=== PATIENT | female | born 1945 | race Caucasian/White ===

== ENCOUNTER → 2017-02-14 | Outpatient (CLI) | payer MEDICARE ==
[~2017-02-14] MED LIST: ADVI200C9 PO; LORTA5 PO
--- NOTE | 2017-02-18 10:42 | RSPPFT ---
DATE OF PROCEDURE: 02/14/17 COMMENTS: Spirometry shows FVC of 1.2 at 40% of predicted, FEV1 of 0.4 at 21%, FEV1/FVC ratio is decreased. Flow is decreased at FEF 25, FEF 50, FEF 75 and FEF 25-75. There is a good response after bronchodilator treatment. Flow volume loop indicates an obstructive pattern. Flow volume loop indicates an obstructive pattern. Severe loss in diffusion capacity. IMPRESSION: 1. Very severe obstructive lung disease. 2. Good response after bronchodilator treatment. 3. Severe loss in diffusion capacity.
== END ==
LOC: HRSP 12:53
PROVIDERS: ATTEND Internal Medicine
DX: J44.9 Chronic obstructive pulmonary disease, unspecified (principal); F17.200 Nicotine dependence, unspecified, uncomplicated
CPT/HCPCS: 94060; 94729